=== PATIENT | female | born 1990 | race Two or more races ===

== ENCOUNTER 2016-10-31 20:57 | Emergency (ER) | payer MEDICAID ==
[~2016-10-31] VITALS: Ht 160 cm; Wt 72.6 kg
[~2016-10-31 20:57] MED LIST: PRENCAP15
[2016-10-31 21:10] VITALS: BP 117/80
== END 2016-11-01 00:01 | disposition left against medical advice (07) ==
LOC: ER 20:57
DX: R11.2 Nausea with vomiting, unspecified (principal); R19.7 Diarrhea, unspecified; Z53.21 Procedure and treatment not carried out due to patient leaving prior to being seen by health care provider